=== PATIENT | male | born 1955 | race African-American/Black ===

== ENCOUNTER 2023-05-29 11:26 | Inpatient (IN) | payer MEDICARE, OTHER ==
[~2023-05-29] VITALS: Ht 182.9 cm; Wt 87.5 kg
[2023-05-29 12:27] LABS: BASOPHILS % (AUTO) 0.6 % (0.0-2.0); EOSINOPHILS # (AUTO) 0.2 K/uL (0.0-0.7); EOSINOPHILS % (AUTO) 2.9 % (0.0-6.0); HEMATOCRIT 43 % (39-51); HEMOGLOBIN 14.3 g/dL (13.5-17.5); LYMPHOCYTES # (AUTO) 1.6 K/uL (0.8-4.8); LYMPHOCYTES % (AUTO) 23.9 % (20.0-44.0); MEAN CORPUSCULAR HEMOGLOBIN 29 PG (26.0-33.0); MEAN CORPUSCULAR HGB CONC 33 g/dl (31.0-36.0); MEAN CORPUSCULAR VOLUME 86 fL (80-96); MONOCYTES # (AUTO) 0.5 K/uL (0.1-1.30); MONOCYTES % (AUTO) 7.8 % (2.0-12.0); NEUTROPHILS # (AUTO) 4.3 K/uL (1.8-8.9); NEUTROPHILS % (AUTO) 64.8 % (43.0-81.0); PLATELET COUNT (AUTO) 241 K/uL (150-450); RED BLOOD CELL COUNT(AUTO) 4.99 MIL/uL (4.5-6.0); RED CELL DISTRIBUTION WIDTH 15.7 % (11.5-15.0); WHITE BLOOD COUNT (AUTO) 6.7 K/uL (4.3-11.0)
[2023-05-29 12:40] LABS: APPEARANCE,URINE CLEAR (CLEAR); BILIRUBIN,URINE NEGATIVE (NEGATIVE); BLOOD, URINE NEGATIVE Ery/uL (NEGATIVE); COLOR,URINE YELLOW (YELLOW); KETONES,URINE NEGATIVE (NEGATIVE); LEUKOCYTE ESTERASE ,URINE NEGATIVE (NEGATIVE); NITRITE, URINE NEGATIVE (NEGATIVE); PH,URINE 6.5 (5.0-8.0); PROTEIN,URINE NEGATIVE (NEGATIVE); UGLUCOSE NEGATIVE (NEGATIVE); UROBILINOGEN,URINE 0.2 EU/dL (0.2)
[2023-05-29 12:47] LABS: CARBON DIOXIDE 27 mmol/L (21-32); CHLORIDE 105 mmol/L (98-107); CREATININE 0.9 mg/dL (0.6-1.3); GLUCOSE 90 mg/dL (74-106); SODIUM SERUM 140 mmol/L (136-145); UREA NITROGEN, BLOOD 19 mg/dL (7-18)
[2023-05-29 12:50] LABS: AMPHETAMINE, URINE NEGATIVE (NEGATIVE); BARBITURATE, URINE NEGATIVE (NEGATIVE); BENZODIAZEPINE, URINE NEGATIVE (NEGATIVE); CANNABINOID, URINE NEGATIVE (NEGATIVE); COCCAINE, URINE NEGATIVE (NEGATIVE); OPIATE, URINE NEGATIVE (NEGATIVE); PHENCYCLIDINE SCREEN,URINE NEGATIVE (NEGATIVE)
[2023-05-29 12:57] LABS: ALANINE AMINOTRANSFERASE 31 U/L (12-78); ALBUMIN 3.4 g/dL (3.4-5.0); ALCOHOL, BLOOD < 3 mg/dL (0-10); ALKALINE PHOSPHATASE 183 U/L (46-116); ASPARTATE AMINOTRANSFERASE 15 U/L (15-37); BILIRUBIN,DIRECT 0.1 mg/dL (0.0-0.2); BILIRUBIN,TOTAL 0.5 mg/dL (0.2-1.0); TOTAL PROTEIN, SERUM 6.8 g/dL (6.4-8.2)
[2023-05-29 13:06] LABS: ACETAMINOPHEN <10 ug/ml (10-30); SALICYLATE 0.4 mg/dL (2.8-20.0)
[2023-05-29] MEDS ORDERED: MELA3TAB41 PO (13:41)
[2023-05-29] MEDS ORDERED: ACET-868 PO (13:41)
[2023-05-29] MEDS ORDERED: DOCU100C36 PO (13:41)
[2023-05-29] MEDS ORDERED: MAGN400O6 PO (13:41)
[2023-05-29] MEDS ORDERED: ONDA4TAB5 PO (13:41)
[2023-05-29] MEDS ORDERED: LEVE500T20 PO (13:41)
[2023-05-29] MEDS ORDERED: POLY17PO4 PO (13:41)
[2023-05-29] MEDS ORDERED: AMLO10TA4 PO (13:41)
[2023-05-29] MEDS ORDERED: MAGNESIUM HYDROXIDE 30 ML UDC PO PRN (17:00)
[2023-05-29] MEDS ORDERED: MAG HYDROX/AL HYDROX/SIMETH 30 ML UDC PO PRN (17:00)
[2023-05-29] MEDS ORDERED: BLOOD SUGAR DIAGNOSTIC 1 EACH STRIP IN ONE (17:00)
[2023-05-29] MEDS ORDERED: ACETAMINOPHEN 325 MG TABLET PO PRN (17:00)
[2023-05-29] MEDS ORDERED: LORAZEPAM 1 MG TABLET PO PRN (17:30)
[2023-05-29] MEDS ORDERED: TEMAZEPAM 15 MG CAPSULE PO PRN (17:30)
[2023-05-29 17:38] VITALS: BP 149/90; TEMP 98.1; O2SAT 99
[2023-05-29 20:00] VITALS: BP 124/87; TEMP 98.6; O2SAT 100
[2023-05-30 08:00] VITALS: BP 132/90; TEMP 98.4; O2SAT 96
[2023-05-30 08:01] LABS: CHOLESTEROL 158 mg/dL (<200); HDL CHOLESTEROL 50 mg/dL (40-60); LDL 104 mg/dL (0-99); TRIGLYCERIDES 78 mg/dL (30-150)
[2023-05-30 08:18] LABS: CALCIUM, SERUM 8.9 mg/dL (8.5-10.1); CREATININE 0.9 mg/dL (0.6-1.3)
[2023-05-30 08:19] LABS: ALBUMIN 3.5 g/dL (3.4-5.0); BILIRUBIN,TOTAL 0.8 mg/dL (0.2-1.0)
[2023-05-30] MEDS: NICOTINE PATCH (21MG) 21 MG PATCH.TD24 TD SCH (08:53)
[2023-05-30] MEDS: risperiDONE 1 MG TABLET PO SCH ×2 (10:24→16:17)
[2023-05-30] MEDS: DIVALPROEX SODIUM 500 MG TABLET.DR PO SCH ×2 (10:25→21:45)
[2023-05-30 16:00] VITALS: BP 112/82; TEMP 98.1; O2SAT 97
[2023-05-30] MEDS ORDERED: ACETAMINOPHEN 325 MG TABLET PO PRN (19:00)
[2023-05-30] MEDS: DOCUSATE SODIUM 100 MG CAPSULE PO SCH (19:33)
[2023-05-30 20:00] VITALS: BP 122/74; TEMP 98; O2SAT 100
[2023-05-30] MEDS: LEVETIRACETAM (250 MG) 250 MG TABLET PO SCH (21:45)
[2023-05-31 08:00] VITALS: BP 142/91; TEMP 98.9; O2SAT 98
[2023-05-31] MEDS: NICOTINE PATCH (21MG) 21 MG PATCH.TD24 TD SCH (08:17)
[2023-05-31] MEDS: DIVALPROEX SODIUM 500 MG TABLET.DR PO SCH ×2 (08:17→21:25)
[2023-05-31] MEDS: LEVETIRACETAM (250 MG) 250 MG TABLET PO SCH ×2 (08:17→21:25)
[2023-05-31] MEDS: DOCUSATE SODIUM 100 MG CAPSULE PO SCH ×2 (08:17→16:05)
[2023-05-31] MEDS: risperiDONE 1 MG TABLET PO SCH ×2 (08:17→16:06)
[2023-05-31] MEDS: AMLODIPINE BESYLATE 10 MG TABLET PO SCH (08:18)
[2023-05-31 16:00] VITALS: BP 128/89; TEMP 98.2; O2SAT 100
[2023-05-31 20:00] VITALS: BP 123/87; TEMP 98.1; O2SAT 100
[2023-06-01 08:00] VITALS: BP 106/86; TEMP 98; O2SAT 98
[2023-06-01] MEDS: DIVALPROEX SODIUM 500 MG TABLET.DR PO SCH ×2 (08:22→20:43)
[2023-06-01] MEDS: LEVETIRACETAM (250 MG) 250 MG TABLET PO SCH ×2 (08:22→20:43)
[2023-06-01] MEDS: NICOTINE PATCH (21MG) 21 MG PATCH.TD24 TD SCH (08:22)
[2023-06-01] MEDS: DOCUSATE SODIUM 100 MG CAPSULE PO SCH ×2 (08:22→16:06)
[2023-06-01] MEDS: risperiDONE 1 MG TABLET PO SCH ×2 (08:22→16:06)
[2023-06-01] MEDS: AMLODIPINE BESYLATE 10 MG TABLET PO SCH (08:23)
[2023-06-01 16:00] VITALS: BP 117/84; TEMP 98.1; O2SAT 97
[2023-06-01 20:38] VITALS: BP 142/80; TEMP 98; O2SAT 99
[2023-06-02 08:00] VITALS: BP 126/84; TEMP 98.7; O2SAT 99
[2023-06-02] MEDS: AMLODIPINE BESYLATE 10 MG TABLET PO SCH (08:41)
[2023-06-02] MEDS: NICOTINE PATCH (21MG) 21 MG PATCH.TD24 TD SCH (08:41)
[2023-06-02] MEDS: risperiDONE 1 MG TABLET PO SCH ×2 (08:41→16:24)
[2023-06-02] MEDS: LEVETIRACETAM (250 MG) 250 MG TABLET PO SCH ×2 (08:41→20:28)
[2023-06-02] MEDS: DOCUSATE SODIUM 100 MG CAPSULE PO SCH ×2 (08:41→16:24)
[2023-06-02] MEDS: DIVALPROEX SODIUM 500 MG TABLET.DR PO SCH ×2 (08:41→20:28)
[2023-06-02 16:00] VITALS: BP 145/100; TEMP 97.7; O2SAT 100
[2023-06-02 20:00] VITALS: BP 131/69; TEMP 98.2; O2SAT 98
[2023-06-03 08:00] VITALS: BP 118/73; TEMP 98; O2SAT 97
[2023-06-03] MEDS: NICOTINE PATCH (21MG) 21 MG PATCH.TD24 TD SCH (09:21)
[2023-06-03] MEDS: DOCUSATE SODIUM 100 MG CAPSULE PO SCH ×2 (09:21→16:50)
[2023-06-03] MEDS: DIVALPROEX SODIUM 500 MG TABLET.DR PO SCH ×2 (09:21→21:05)
[2023-06-03] MEDS: LEVETIRACETAM (250 MG) 250 MG TABLET PO SCH ×2 (09:21→21:05)
[2023-06-03] MEDS: AMLODIPINE BESYLATE 10 MG TABLET PO SCH (09:21)
[2023-06-03] MEDS: risperiDONE 1 MG TABLET PO SCH ×2 (09:21→16:50)
[2023-06-03 16:00] VITALS: BP 120/68; TEMP 98; O2SAT 98
[2023-06-03 20:14] VITALS: BP 117/71; TEMP 98.2; O2SAT 99
[2023-06-04 08:00] VITALS: BP 102/66; TEMP 97.8; O2SAT 97
[2023-06-04] MEDS: risperiDONE 1 MG TABLET PO SCH ×2 (08:36→17:01)
[2023-06-04] MEDS: NICOTINE PATCH (21MG) 21 MG PATCH.TD24 TD SCH (08:36)
[2023-06-04] MEDS: DIVALPROEX SODIUM 500 MG TABLET.DR PO SCH ×2 (08:36→20:28)
[2023-06-04] MEDS: DOCUSATE SODIUM 100 MG CAPSULE PO SCH ×2 (08:36→17:00)
[2023-06-04] MEDS: LEVETIRACETAM (250 MG) 250 MG TABLET PO SCH ×2 (08:36→20:28)
[2023-06-04] MEDS: AMLODIPINE BESYLATE 10 MG TABLET PO SCH (08:37)
[2023-06-04 16:00] VITALS: BP 145/92; TEMP 97.8; O2SAT 100
[2023-06-04 20:53] VITALS: BP 108/78; TEMP 98.4; O2SAT 99
[2023-06-05 08:00] VITALS: BP 129/90; TEMP 98.1; O2SAT 98
[2023-06-05] MEDS: DIVALPROEX SODIUM 500 MG TABLET.DR PO SCH ×2 (08:16→21:22)
[2023-06-05] MEDS: risperiDONE 1 MG TABLET PO SCH ×2 (08:17→16:09)
[2023-06-05] MEDS: AMLODIPINE BESYLATE 10 MG TABLET PO SCH (08:17)
[2023-06-05] MEDS: DOCUSATE SODIUM 100 MG CAPSULE PO SCH ×2 (08:17→16:09)
[2023-06-05] MEDS: NICOTINE PATCH (21MG) 21 MG PATCH.TD24 TD SCH (08:17)
[2023-06-05] MEDS: LEVETIRACETAM (250 MG) 250 MG TABLET PO SCH ×2 (08:17→21:22)
[2023-06-05 16:00] VITALS: BP_SYST 108; BP_SYST 129; BP_DIAS 66; BP_DIAS 90; TEMP 98.1; TEMP 98.4; O2SAT 98
[2023-06-06 05:29] VITALS: BP 110/71; TEMP 97.5; O2SAT 97
[2023-06-06 08:00] VITALS: BP 123/79; TEMP 97.8; O2SAT 99
[2023-06-06] MEDS: risperiDONE 1 MG TABLET PO SCH ×2 (08:17→16:04)
[2023-06-06] MEDS: DOCUSATE SODIUM 100 MG CAPSULE PO SCH ×2 (08:17→16:04)
[2023-06-06] MEDS: AMLODIPINE BESYLATE 10 MG TABLET PO SCH (08:17)
[2023-06-06] MEDS: DIVALPROEX SODIUM 500 MG TABLET.DR PO SCH ×2 (08:17→21:31)
[2023-06-06] MEDS: LEVETIRACETAM (250 MG) 250 MG TABLET PO SCH ×2 (08:17→21:31)
[2023-06-06] MEDS: NICOTINE PATCH (21MG) 21 MG PATCH.TD24 TD SCH (08:17)
[2023-06-06 16:00] VITALS: BP_SYST 107; BP_SYST 127; BP_DIAS 62; BP_DIAS 67; TEMP 97.6; TEMP 98; O2SAT 98
[2023-06-06 20:11] VITALS: BP 111/68; TEMP 98.1; O2SAT 98
[2023-06-07 08:00] VITALS: BP 130/74; TEMP 98.8; O2SAT 100
[2023-06-07] MEDS: DOCUSATE SODIUM 100 MG CAPSULE PO SCH ×2 (08:05→16:19)
[2023-06-07] MEDS: NICOTINE PATCH (21MG) 21 MG PATCH.TD24 TD SCH (08:05)
[2023-06-07] MEDS: LEVETIRACETAM (250 MG) 250 MG TABLET PO SCH ×2 (08:05→21:38)
[2023-06-07] MEDS: DIVALPROEX SODIUM 500 MG TABLET.DR PO SCH ×2 (08:06→21:38)
[2023-06-07] MEDS: risperiDONE 1 MG TABLET PO SCH ×2 (08:06→16:19)
[2023-06-07] MEDS: AMLODIPINE BESYLATE 10 MG TABLET PO SCH (08:06)
[2023-06-07 16:00] VITALS: BP 158/90; TEMP 98.9; O2SAT 100
[2023-06-07 20:11] VITALS: BP 106/61; TEMP 98.1; O2SAT 99
[2023-06-08 08:00] VITALS: BP 126/96; TEMP 97.9; O2SAT 98
[2023-06-08] MEDS: LEVETIRACETAM (250 MG) 250 MG TABLET PO SCH ×2 (08:20→21:05)
[2023-06-08] MEDS: risperiDONE 1 MG TABLET PO SCH ×2 (08:20→16:19)
[2023-06-08] MEDS: NICOTINE PATCH (21MG) 21 MG PATCH.TD24 TD SCH (08:20)
[2023-06-08] MEDS: DOCUSATE SODIUM 100 MG CAPSULE PO SCH ×2 (08:20→16:19)
[2023-06-08] MEDS: DIVALPROEX SODIUM 500 MG TABLET.DR PO SCH ×2 (08:20→21:05)
[2023-06-08] MEDS: AMLODIPINE BESYLATE 10 MG TABLET PO SCH (08:20)
[2023-06-08 16:00] VITALS: BP 118/65; TEMP 97.9; O2SAT 96
[2023-06-08 20:32] VITALS: BP 120/96; TEMP 98; O2SAT 98
[2023-06-09 08:00] VITALS: BP 121/84; TEMP 98.2; O2SAT 96
[2023-06-09] MEDS: risperiDONE 1 MG TABLET PO SCH ×2 (09:18→16:44)
[2023-06-09] MEDS: DOCUSATE SODIUM 100 MG CAPSULE PO SCH ×2 (09:18→16:44)
[2023-06-09] MEDS: AMLODIPINE BESYLATE 10 MG TABLET PO SCH (09:18)
[2023-06-09] MEDS: LEVETIRACETAM (250 MG) 250 MG TABLET PO SCH ×2 (09:18→21:19)
[2023-06-09] MEDS: DIVALPROEX SODIUM 500 MG TABLET.DR PO SCH ×2 (09:18→21:19)
[2023-06-09] MEDS: NICOTINE PATCH (21MG) 21 MG PATCH.TD24 TD SCH (09:18)
[2023-06-09 16:00] VITALS: BP 145/91; TEMP 98.1; O2SAT 99
[2023-06-09 20:55] VITALS: BP 140/85; TEMP 98.4; O2SAT 98
[2023-06-10 08:00] VITALS: BP 118/90; TEMP 97.8; O2SAT 96
[2023-06-10 08:28] VITALS: BP 117/91
[2023-06-10] MEDS: LEVETIRACETAM (250 MG) 250 MG TABLET PO SCH (08:28)
[2023-06-10] MEDS: DIVALPROEX SODIUM 500 MG TABLET.DR PO SCH (08:28)
[2023-06-10] MEDS: NICOTINE PATCH (21MG) 21 MG PATCH.TD24 TD SCH (08:28)
[2023-06-10] MEDS: AMLODIPINE BESYLATE 10 MG TABLET PO SCH (08:28)
[2023-06-10] MEDS: risperiDONE 1 MG TABLET PO SCH (08:28)
[2023-06-10] MEDS: DOCUSATE SODIUM 100 MG CAPSULE PO SCH (08:34)
== END 2023-06-10 15:03 | disposition home or self-care (01) | DRG 885 ==
LOC: ER 11:30 → GPS 16:40
PROVIDERS: ADMIT Psychiatry & Neurology Psychosomatic Medicine; ATTEND Nurse Practitioner Acute Care
DX: F25.9 Schizoaffective disorder, unspecified (principal); G40.909 Epilepsy, unspecified, not intractable, without status epilepticus; I10 Essential (primary) hypertension; F32.A Depression, unspecified; F20.0 Paranoid schizophrenia; F41.9 Anxiety disorder, unspecified; Z20.822 Contact with and (suspected) exposure to COVID-19; F17.210 Nicotine dependence, cigarettes, uncomplicated; M62.81 Muscle weakness (generalized); Z73.6 Limitation of activities due to disability; F29 Unspecified psychosis not due to a substance or known physiological condition
CPT/HCPCS: 36415; 80048-TC; 80053-TC; 80061-TC; 80076-TC; 85025-TC; 87081-TC; C9803; G0480